=== PATIENT | female | born 1965 | race Caucasian/White ===

== ENCOUNTER → 2016-06-27 | Outpatient (CLI) | payer BC ==
[~2016-06-27] MED LIST: ATOR10TA66 PO; ATOR20TA49 PO; CEPH500C PO; CETI10CA8 PO; CITA10TA70 PO; CITA20TA12 PO; CYCL10TA9 PO; FEXO1TAB43 PO; FRSM40T PO; FURO40TA4 PO; GLUC1CAP37 PO; LSNP10T PO; METR500T; PANT40TA PO; PHEN37.555 PO; POTA10CA43 PO; POTA10TA36 PO; SPIR25TA3 PO; TOLT4CAP PO; TRAM-21 PO; [UNRECOGNIZED DRUG - CODE] IJ
--- OUTSIDE RECORDS SUMMARY | 2016-06-27 10:22 | XMS REPORT | Continuity of Care Document ---
Author Author [facility] Address Unknown Phone Unavailable Allergies Active Description Code Type Severity Reaction Onset Reported/Identified Relationship to Patient Clinical Status Yes tetracycline [id number] Drug Allergy Unknown HIVES 03/30/2013 Medications Problems Date Dx Coded Attending Type Code Diagnosis Diagnosed By 03/30/2013 CHUCHO GARCIA MD Ot 272.4 03/30/2013 CHUCHO GARCIA MD Ot 278.00 03/30/2013 CHUCHO GARCIA MD Ot 401.9 03/30/2013 CHUCHO GARCIA MD Ot 414.01 03/30/2013 CHUCHO GARCIA MD Ot 782.3 03/30/2013 CHUCHO GARCIA MD Ot 786.50 03/30/2013 CHUCHO GARCIA MD Ot 794.30 03/30/2013 CHUCHO GARCIA MD Ot V58.69 03/30/2013 CHUCHO GARCIA MD Ot V85.41 05/23/2013 MOHAMUD SUH, BRANDIE Bernal Ot 455.0 03/30/2014 YO MYERS DO V04.81 FLU SHOT 04/30/2014 Ot 715.36 04/30/2014 Ot 719.41 06/08/2014 MOHAMUD SUH, BRANDIE Bernal Ot 569.3 06/08/2014 MOHAMUD SUH, BRANDIE Bernal Ot 569.42 06/08/2014 BRANDIE MALLORY MD Ot V72.84 06/08/2014 MHOAMUD SUH, BRANDIE Bernal Ot V74.8 06/12/2014 MOHAMUD SUH, BRANDIE Bernal Ot 455.3 06/12/2014 MOHAMUD SUH, BRANDIE Bernal Ot 455.9 06/12/2014 BRANDIE MALLORY MD Ot 565.0 06/21/2014 MOHAMUD SUH, BRANDIE Bernal Ot 569.3 06/21/2014 BRANDIE MALLORY MD Ot 569.42 06/21/2014 BRANDIE MALLORY MD Ot V72.84 06/21/2014 MOHAMUD SUH, BRANDIE Bernal Ot V74.8 08/07/2014 Ot 272.4 08/11/2014 Ot 272.4 10/13/2014 Ot 715.36 10/13/2014 Ot 719.41 10/13/2014 RADHA SUH, CHUCHO Sprague Ot 780.4 10/13/2014 RADHA SUH, CHUCHO Sprague Ot 786.50 10/13/2014 RADHA SUH, CHUCHO J Ot 272.4 10/13/2014 RADHA SUH, CHUCHO Sprague Ot 397.0 10/13/2014 RADHA SUH, CHUCHO Sprague Ot 424.0 10/13/2014 RADHA SUH, CHUCHO Sprague Ot 530.81 10/13/2014 RADHA SUH, CHUCHO Sprague Ot 780.4 10/13/2014 RADHA SUH, CHUCHO Sprague Ot 782.3 10/13/2014 RADHA SUH, CHUCHO Sprague Ot 786.59 10/13/2014 MOHAMUD SUH, BRANDIE Bernal Ot V72.84 10/13/2014 Ot 272.4 10/13/2014 Ot 278.01 10/13/2014 Ot 311 10/13/2014 Ot 386.19 10/13/2014 Ot 530.81 10/13/2014 Ot 782.3 10/13/2014 Ot 786.09 10/13/2014 REYES CANNON Ot 272.4 10/13/2014 REYES CANNON Ot 278.01 10/13/2014 REYES CANNON Ot 715.90 10/13/2014 REYES CANNON Ot 782.3 10/13/2014 MOHAMUD SUH, BRANDIE Bernal Ot 569.3 10/13/2014 MOHAMUD SUH, BRANDIE Bernal Ot 569.42 10/13/2014 MOHAMUD SUH, BRANDIE Bernal Ot V72.84 10/13/2014 MOHAMUD SUH, BRANDIE Bernal Ot V74.8 10/13/2014 Ot 272.4 10/17/2014 RADHA SUH, CHUCHO Sprague Ot 780.4 10/17/2014 RADHA SUH, CHUCHO Sprague Ot 786.50 10/17/2014 RADHA SUH, CHUCHO J Ot 272.4 10/17/2014 RADHA SUH, BASHAR J Ot 397.0 10/17/2014 RADHA SUH, CHUCHO Sprague Ot 424.0 10/17/2014 RADHA SUH, CHUCHO Sprague Ot 530.81 10/17/2014 RADHA SUH, CHUCHO J Ot 780.4 10/17/2014 RADHA SUH, CHUCHO J Ot 782.3 10/17/2014 RADHA SUH, CHUCHO Sprague Ot 786.59 10/17/2014 MOHAMUD SUH, BRANDIE Bernal Ot V72.84 10/17/2014 Ot 272.4 10/17/2014 Ot 278.01 10/17/2014 Ot 311 10/17/2014 Ot 386.19 10/17/2014 Ot 530.81 10/17/2014 Ot 782.3 10/17/2014 Ot 786.09 10/17/2014 REYES CANNON Ot 272.4 10/17/2014 REYES CANNON Ot 278.01 10/17/2014 REYES CANNON Ot 715.90 10/17/2014 REYES CANNON Ot 782.3 10/17/2014 MOHAMUD SUH, BRANDIE Bernal Ot 569.3 10/17/2014 MOHAMUD SUH, BRANDIE Bernal Ot 569.42 10/17/2014 MOHAMUD SUH, BRANDIE Bernal Ot V72.84 10/17/2014 MOHAMUD SUH, BRANDIE Bernal Ot V74.8 10/17/2014 Ot 272.4 10/17/2014 RADHA SUH, CHUCHO Sprague Ot 780.4 10/17/2014 RADHA SUH, CHUCHO Sprague Ot 786.50 10/17/2014 RADHA SUH, CHUCHO Sprague Ot 272.4 10/17/2014 RADHA SUH, CHUCHO Sprague Ot 397.0 10/17/2014 RADHA SUH, CHUCHO J Ot 424.0 10/17/2014 RADHA SUH, CHUCHO Sprague Ot 530.81 10/17/2014 RADHA SUH, CHUCHO J Ot 780.4 10/17/2014 RADHA SUH, CHUCHO J Ot 782.3 10/17/2014 RADHA SUH, CHUCHO Sprague Ot 786.59 10/17/2014 MOHAMUD SUH, BRANDIE Bernal Ot V72.84 10/17/2014 Ot 272.4 10/17/2014 Ot 278.01 10/17/2014 Ot 311 10/17/2014 Ot 386.19 10/17/2014 Ot 530.81 10/17/2014 Ot 782.3 10/17/2014 Ot 786.09 10/17/2014 REYES CANNON Ot 272.4 10/17/2014 REYES CANNON Ot 278.01 10/17/2014 REYES CANNON Ot 715.90 10/17/2014 REYES CANNON Ot 782.3 10/17/2014 MOHAMUD SUH, BRANDIE Bernal Ot 569.3 10/17/2014 MOHAMUD SUH, BRANDIE Bernal Ot 569.42 10/17/2014 MOHAMUD SUH, BRANDIE Bernal Ot V72.84 10/17/2014 MOHAMUD SUH, BRANDIE Bernal Ot V74.8 10/17/2014 Ot 272.4 01/09/2015 RADHA SUH, CHUCHO Sprague Ot 780.4 01/09/2015 RADHA SUH, CHUCHO Sprague Ot 786.50 01/09/2015 RADHA SUH, CHUCHO J Ot 272.4 01/09/2015 RADHA SUH, CHUCHO J Ot 397.0 01/09/2015 RADHA SUH, CHUCHO J Ot 424.0 01/09/2015 RADHA SUH, BASEULALIO J Ot 530.81 01/09/2015 RADHA SUH, CHUCHO J Ot 780.4 01/09/2015 RADHA SUH, CHUCHO J Ot 782.3 01/09/2015 RADHA SUH, CHUCHO Sprague Ot 786.59 01/09/2015 MOHAMUD SUH, BRANDIE Bernal Ot V72.84 01/09/2015 Ot 272.4 01/09/2015 Ot 278.01 01/09/2015 Ot 311 01/09/2015 Ot 386.19 01/09/2015 Ot 530.81 01/09/2015 Ot 782.3 01/09/2015 Ot 786.09 01/09/2015 REYES CANNON Ot 272.4 01/09/2015 REYES CANNON Ot 278.01 01/09/2015 REYES CANNON Ot 715.90 01/09/2015 REYES CANNON Ot 782.3 01/09/2015 MOHAMUD SUH, BRANDIE Bernal Ot 569.3 01/09/2015 MOHAMUD SUH, BRANDIE M Ot 569.42 01/09/2015 MOHAMUD SUH, BRANDIE M Ot V72.84 01/09/2015 MOHAMUD SUH, BRANDIE M Ot V74.8 01/09/2015 Ot 272.4 01/12/2015 RADHA SUH, CHUCHO Sprague Ot 780.4 01/12/2015 RADHA SUH, CHUCHO Sprague Ot 786.50 01/12/2015 RADHA SUH, CHUCHO J Ot 272.4 01/12/2015 RADHA SUH, CHUCHO J Ot 397.0 01/12/2015 RADHA SUH, CHUCHO J Ot 424.0 01/12/2015 RADHA SUH, CHUCHO J Ot 530.81 01/12/2015 RADHA SUH, CHUCHO J Ot 780.4 01/12/2015 RADHA SUH, CHUCHO Sprague Ot 782.3 01/12/2015 RADHA SUH, CHUCHO Sprague Ot 786.59 01/12/2015 MOHAMUD SUH, BRANDIE Bernal Ot V72.84 01/12/2015 Ot 272.4 01/12/2015 Ot 278.01 01/12/2015 Ot 311 01/12/2015 Ot 386.19 01/12/2015 Ot 530.81 01/12/2015 Ot 782.3 01/12/2015 Ot 786.09 01/12/2015 REYES CANNON Ot 272.4 01/12/2015 REYES CANNON Ot 278.01 01/12/2015 REYES CANNON Ot 715.90 01/12/2015 REYES CANNON Ot 782.3 01/12/2015 MOHAMUD SUH, BRANDIE Bernal Ot 569.3 01/12/2015 MOHAMUD SUH, BRANDIE Bernal Ot 569.42 01/12/2015 MOHAMUD SUH, BRANDIE Bernal Ot V72.84 01/12/2015 MOHAMUD SUH, BRANDIE Bernal Ot V74.8 01/12/2015 Ot 272.4 01/25/2015 VIANCA SCHMITZ APRN Ot 719.46 02/07/2015 REYES CANNON Ot 272.4 02/07/2015 REYES CANNON Ot 278.01 02/07/2015 SOPHY PA, REYES K Ot 401.1 02/07/2015 SOPHY PA, REYES K Ot 715.90 02/07/2015 SOPHY PA, REYES K Ot 782.3 08/15/2015 RADHA SUH, CHUCHO Sprague Ot 780.4 08/15/2015 RADHA SUH, CHUCHO Sprague Ot 786.50 08/15/2015 RADHA SUH, CHUCHO J Ot 272.4 08/15/2015 RADHA SUH, CHUCHO J Ot 397.0 08/15/2015 RADHA SUH, CHUCHO J Ot 424.0 08/15/2015 RADHA SUH, CHUCHO Sprague Ot 530.81 08/15/2015 RADHA SUH, CHUCHO J Ot 780.4 08/15/2015 RADHA SUH, CHUCHO Sprague Ot 782.3 08/15/2015 RADHA SUH, CHUCHO Sprague Ot 786.59 08/15/2015 MOHAMUD SUH, BRANDIE Bernal Ot V72.84 08/15/2015 Ot 272.4 08/15/2015 Ot 278.01 08/15/2015 Ot 311 08/15/2015 Ot 386.19 08/15/2015 Ot 530.81 08/15/2015 Ot 782.3 08/15/2015 Ot 786.09 08/15/2015 SOPHY KAHN, REYES K Ot 272.4 08/15/2015 SOPHY KAHN, REYES K Ot 278.01 08/15/2015 SOPHY KAHN, REYES K Ot 715.90 08/15/2015 SOPHY PA, REYES K Ot 782.3 08/15/2015 MOHAMUD SUH, BRANDIE Bernal Ot 569.3 08/15/2015 MOHAMUD SUH, BRANDIE Bernal Ot 569.42 08/15/2015 MOHAMUD SUH, BRANDIE Bernal Ot V72.84 08/15/2015 MOHAMUD SUH, BRANDIE Bernal Ot V74.8 08/15/2015 Ot 272.4 08/15/2015 VIANCA SCHMITZ APRN Ot 719.46 08/15/2015 SOPHY KAHN, REYES K Ot 272.4 08/15/2015 SOPHY PA, REYES Connelly Ot 278.01 08/15/2015 REYES CANNON Ot 401.1 08/15/2015 REYES CANNON Ot 715.90 08/15/2015 REYES CANNON Ot 782.3 08/16/2015 PATRICK SUH, NGUYEN Medel Ot L50.9 08/29/2015 PATRICK SUH, NGUYEN Medel Ot L50.9 URTICARIA, UNSPECIFIED 10/12/2015 PATRICK SUH, NGUYEN Medel Ot L50.9 URTICARIA, UNSPECIFIED 11/16/2015 VIANCA SCHMITZ SENIOR BUYER Ot K21.9 GASTRO-ESOPHAGEAL REFLUX DISEASE WITHOUT 12/07/2015 VIANCA SCHMITZ SENIOR BUYER Ot K21.9 GASTRO-ESOPHAGEAL REFLUX DISEASE WITHOUT 12/18/2015 VIANCA SCHMITZ APRN Ot R10.13 EPIGASTRIC PAIN 12/23/2015 VIANCA SCHMITZ APRN Ot R10.13 EPIGASTRIC PAIN 01/04/2016 VIANCA SCHMITZ SENIOR BUYER Ot R10.13 EPIGASTRIC PAIN 01/07/2016 VIANCA SCHMITZ APRN Ot M54.5 LOW BACK PAIN Procedures Results Encounters ACCT No. Visit Date/Time Discharge Status Pt. Type Provider Facility Loc./Unit Complaint [id number] 03/30/2014 15:42:00 03/30/2014 23: 59:59 [facility] Outpatient YO MYERS DO
--- NOTE | 2016-06-27 11:41 | Diagnostic Imaging Report ---
Multiple views of the right shoulder. INDICATION: Increased right shoulder pain. FINDINGS: No fracture, dislocation, or radiopaque foreign body seen. The acromioclavicular joint demonstrates mild superior osteophytes with no significant inferior osteophytes. There is sparing along the humeral head lateral superior aspect at the tendon insertion of the rotator cuff. IMPRESSION: Mild degenerative changes. Dictated by: Dictated on workstation # [id number]
--- NOTE | 2016-06-27 12:24 | Diagnostic Imaging Report ---
Bilateral screening mammogram. The current study was also evaluated with a Computer Aided Detection (CAD) system. INDICATION: Screening. No current complaints stated on the questionnaire. COMPARISON: 05/12/2007. FINDINGS: The breasts are composed of heterogeneously dense parenchyma which may decrease mammographic sensitivity. The overall breast parenchymal pattern is similar to 2007 accounting for position and technique differences with no definite change. No suspicious calcifications noted. IMPRESSION: Heterogeneously dense parenchyma with no definite suspicious lesion. Annual screening mammogram is recommended. ACR BI-RADS Category 2: Benign findings. Result letter will be mailed to the patient. Note: At least 10% of breast cancer is not imaged by mammography. Dictated by: Dictated on workstation # [id number]
== END ==
LOC: RAD 10:15
PROVIDERS: ATTEND Nurse Practitioner Family
DX: Z12.31 Encounter for screening mammogram for malignant neoplasm of breast (principal); M19.211 Secondary osteoarthritis, right shoulder
CPT/HCPCS: 73030; 77067

== ENCOUNTER 2016-07-25 16:40 | Observation (INO) | payer BC ==
[~2016-07-25] VITALS: Ht 162.6 cm; Wt 130.7 kg
[~2016-07-25 16:40] MED LIST changes: -ATOR20TA49 PO; -CITA20TA12 PO; -CYCL10TA9 PO; -FEXO1TAB43 PO; -FURO40TA4 PO; -GLUC1CAP37 PO; -POTA10TA36 PO; -SPIR25TA3 PO; -[UNRECOGNIZED DRUG - CODE] IJ
--- OUTSIDE RECORDS SUMMARY | 2016-07-25 16:51 | XMS REPORT | Continuity of Care Document ---
Author Author [facility] Address Unknown Phone Unavailable Allergies Active Description Code Type Severity Reaction Onset Reported/Identified Relationship to Patient Clinical Status Yes tetracycline [id number] Drug Allergy Unknown HIVES 03/30/2013 Medications Problems Date Dx Coded Attending Type Code Diagnosis Diagnosed By 03/30/2013 CHUCHO GARCIA MD Ot 272.4 HYPERLIPIDEMIA NEC/NOS 03/30/2013 CHUCHO GARCIA MD Ot 278.00 OBESITY, NOS 03/30/2013 CHUCHO GARCIA MD Ot 401.9 HYPERTENSION NOS 03/30/2013 CHUCHO GARCIA MD Ot 414.01 CORONARY ATHEROSCLEROSIS OF [place] CORON 03/30/2013 CHUCHO GARCIA MD Ot 782.3 EDEMA 03/30/2013 CHUCHO GARCIA MD Ot 786.50 CHEST PAIN NOS 03/30/2013 CHUCHO GARCIA MD Ot 794.30 ABN CARDIOVASC STUDY NOS 03/30/2013 CHUCHO GARCIA MD Ot V58.69 OTH MED,LT,CURRENT USE 03/30/2013 CHUCHO GARCIA MD Ot V85.41 BODY MASS INDEX 40.0-44.9, ADULT 05/23/2013 MOHAMUD SUH, BRANDIE Bernal Ot 455.0 INT HEMORRHOID W/O COMPL 03/30/2014 YO MYERS DO V04.81 FLU SHOT 04/30/2014 Ot 715.36 04/30/2014 Ot 719.41 06/08/2014 BRANDIE MALLORY MD Ot 569.3 06/08/2014 BRANDIE MALLORY MD Ot 569.42 06/08/2014 BRANDIE MALLORY MD Ot V72.84 06/08/2014 BRANDIE MALLORY MD Ot V74.8 06/12/2014 BRANDIE MALLORY MD Ot 455.3 EXT HEMORRHOID W/O COMPL 06/12/2014 BRANDIE MALLORY MD Ot 455.9 RESIDUAL HEMORRHOID TAGS 06/12/2014 MOHAMUD SUH, BRANDIE Bernal Ot 565.0 ANAL FISSURE 06/21/2014 MOHAMUD SUH, BRANDIE Bernal Ot 569.3 06/21/2014 MOHAMUD SUH, BRANDIE Bernal Ot 569.42 06/21/2014 MOHAMUD SUH, BRANDIE Bernal Ot V72.84 06/21/2014 MOHAMUD SUH, BRANDIE Bernal [...] Sprague Ot 530.81 10/13/2014 RADHA SUH, CHUCHO J Ot 780.4 10/13/2014 RADHA SUH, CHUCHO Sprague [...] CHUCHO J Ot 272.4 10/17/2014 RADHA SUH, CHUCHO Sprague Ot 397.0 10/17/2014 RADHA SUH, CHUCHO Sprague Ot 424.0 10/17/2014 RADHA SUH, CHUCHO Sprague Ot 530.81 10/17/2014 RADHA SUH, CHUCHO Sprague Ot 780.4 10/17/2014 RADHA SUH, CHUCHO Sprague Ot 782.3 10/17/2014 RADHA SUH, CHUCHO Sprague Ot 786.59 10/17/2014 MOHAMUD SUH, BRANDIE Bernal Ot V72.84 10/17/2014 Ot 272.4 10/17/2014 Ot 278.01 10/17/2014 Ot 311 10/17/2014 Ot 386.19 10/17/2014 Ot 530.81 10/17/2014 Ot 782.3 10/17/2014 Ot 786.09 10/17/2014 REYES CANNON Ot 272.4 10/17/2014 SOPHY KAHN, REYES K Ot 278.01 10/17/2014 REYES CANNON K Ot 715.90 10/17/2014 REYES CANNON K Ot 782.3 10/17/2014 MOHAMUD SUH, BRANDIE Bernal Ot 569.3 10/17/2014 MOHAMUD SUH, BRANDIE Bernal Ot 569.42 10/17/2014 MOHAMUD SUH, BRANDIE Bernal Ot V72.84 10/17/2014 MOHAMUD SUH, BRANDIE Bernal Ot V74.8 10/17/2014 Ot 272.4 10/17/2014 RADHA SUH, CHUCHO Sprague Ot 780.4 10/17/2014 RADHA SUH, CHUCHO Sprague Ot 786.50 10/17/2014 RADHA SUH, CHUCHO J Ot 272.4 10/17/2014 RADHA SUH, CHUCHO Sprague Ot 397.0 10/17/2014 RADHA SUH, CHUCHO Sprague Ot 424.0 10/17/2014 RADHA SUH, CHUCHO Sprague Ot 530.81 10/17/2014 RADHA SUH, CHUCHO Sprague Ot 780.4 10/17/2014 RADHA SUH, CHUCHO Sprague Ot 782.3 10/17/2014 RADHA SUH, CHUCHO Sprague [...] J Ot 272.4 01/09/2015 RADHA SUH, CHUCHO Sprague Ot 397.0 01/09/2015 RADHA SUH, CHUCHO Sprague Ot 424.0 01/09/2015 RADHA SUH, CHUCHO Sprague Ot 530.81 01/09/2015 RADHA SUH, CHUCHO J Ot 780.4 01/09/2015 RADHA SUH, CHUCHO Sprague Ot 782.3 01/09/2015 RADHA SUH, CHUCHO Sprague Ot 786.59 01/09/2015 MOHAMUD SUH, BRANDIE Bernal Ot V72.84 01/09/2015 Ot 272.4 01/09/2015 Ot 278.01 01/09/2015 Ot 311 01/09/2015 Ot 386.19 01/09/2015 Ot 530.81 01/09/2015 Ot 782.3 01/09/2015 Ot 786.09 01/09/2015 REYES CANNON Ot 272.4 01/09/2015 SOPHY PA, REYES Connelly Ot 278.01 01/09/2015 SOPHY PA, REYES Connelly Ot 715.90 01/09/2015 SOPHY PA, REYES Connelly Ot 782.3 01/09/2015 MOHAMUD SUH, BRANDIE Bernal Ot 569.3 01/09/2015 MOHAMUD SUH, BRANDIE Bernal Ot 569.42 01/09/2015 MOHAMUD SUH, BRANDIE M Ot V72.84 01/09/2015 MOHAMUD SUH, BRANDIE M Ot V74.8 01/09/2015 Ot 272.4 01/12/2015 RADHA SUH, CHUCHO J Ot 780.4 01/12/2015 RADHA SUH, BASEULALIO J Ot 786.50 01/12/2015 RADHA SUH, BASEULALIO J Ot 272.4 01/12/2015 RADHA SUH, CHUCHO J Ot 397.0 01/12/2015 RADHA SUH, CHUCHO J Ot 424.0 01/12/2015 RADHA SUH, BASHAR J Ot 530.81 01/12/2015 RADHA SUH, BASHAR J Ot 780.4 01/12/2015 RADHA SUH, BASHAR J Ot 782.3 01/12/2015 RADHA SUH, BASEULALIO J Ot 786.59 01/12/2015 MOHAMUD SUH, BRANDIE Bernal Ot V72.84 01/12/2015 Ot 272.4 01/12/2015 Ot 278.01 01/12/2015 Ot 311 01/12/2015 Ot 386.19 01/12/2015 Ot 530.81 01/12/2015 Ot 782.3 01/12/2015 Ot 786.09 01/12/2015 SOPHY KAHN, REYES Connelly Ot 272.4 01/12/2015 SOPHY PA, REYES Connelly Ot 278.01 01/12/2015 SOPHY PA, REYES Connelly Ot 715.90 01/12/2015 SOPHY KAHN, REYES Connelly Ot 782.3 01/12/2015 MOHAMUD SUH, BRANDIE Bernal Ot 569.3 01/12/2015 MOHAMUD SUH, BRANDIE M Ot 569.42 01/12/2015 MOHAMUD SUH, BRANDIE Bernal Ot V72.84 01/12/2015 MOHAMUD SUH, BRANDIE Bernal Ot V74.8 01/12/2015 Ot 272.4 01/25/2015 VIANCA SCHMITZ APRN Ot 719.46 02/07/2015 SMALLS-PHU PA, REYES K Ot 272.4 02/07/2015 SMALLS-PHU PA, REYES K Ot 278.01 02/07/2015 SMALLS-PHU PA, REYES K Ot 401.1 02/07/2015 SMALLS-PHU PA, REYES K Ot 715.90 02/07/2015 SMALLS-PHU PA, REYES K Ot 782.3 08/15/2015 RADHA SUH, BASEULALIO J Ot 780.4 08/15/2015 RADHA SUH, CHUCHO J Ot 786.50 08/15/2015 RADHA SUH, CHUCHO J Ot 272.4 08/15/2015 RADHA SUH, CHUCHO J Ot 397.0 08/15/2015 RADHA SUH, BASHAR J Ot 424.0 08/15/2015 RADHA SUH, BASHAR J Ot 530.81 08/15/2015 RADHA SUH, BASHAR J Ot 780.4 08/15/2015 RADHA SUH, BASHAR J Ot 782.3 08/15/2015 RADHA SUH, BASEULALIO J Ot 786.59 08/15/2015 MOHAMUD SUH, BRANDIE Bernal Ot V72.84 08/15/2015 Ot 272.4 08/15/2015 Ot 278.01 08/15/2015 Ot 311 08/15/2015 Ot 386.19 08/15/2015 Ot 530.81 08/15/2015 Ot 782.3 08/15/2015 Ot 786.09 08/15/2015 SERINA-PHU PA, REYES K Ot 272.4 08/15/2015 SERIAN-PHU PA, REYES K Ot 278.01 08/15/2015 SERINA-PHU PA, REYES K Ot 715.90 08/15/2015 SERINA-PHU PA, REYES K Ot 782.3 08/15/2015 MOHAMUD SUH, BRANDIE Bernal Ot 569.3 08/15/2015 MOHAMUD SUH, BRANDIE Bernal Ot 569.42 08/15/2015 MOHAMUD SUH, BRANDIE Bernal Ot V72.84 08/15/2015 MOHAMUD SUH, BRANDIE Bernal Ot V74.8 08/15/2015 Ot 272.4 08/15/2015 AINSLEY ULISESNABIL Rodriguez CNA PER DIEM Ot 719.46 08/15/2015 SOPHY KAHN REYES Godwin Ot 272.4 08/15/2015 SOPHY KAHN, REYES Godwin Ot 278.01 08/15/2015 SOPHY KAHN, REYES Godwin Ot 401.1 08/15/2015 SOPHY KAHN, REYES Godwin Ot 715.90 08/15/2015 SOPHY KAHN, REYES Godwin Ot 782.3 08/16/2015 PATRICK SUH, NGUYEN Medel Ot L50.9 08/29/2015 PATRICK SUH, NGUYEN Medel Ot L50.9 URTICARIA, UNSPECIFIED 10/12/2015 PATRICK SUH, NGUYEN Medel Ot L50.9 URTICARIA, UNSPECIFIED 11/16/2015 VIANCA SCHMITZ CNA PER DIEM Ot K21.9 GASTRO-ESOPHAGEAL REFLUX DISEASE WITHOUT 12/07/2015 VIANCA SCHMITZ CNA PER DIEM Ot K21.9 GASTRO-ESOPHAGEAL REFLUX DISEASE WITHOUT 12/18/2015 VIANCA SCHMITZ CNA PER DIEM Ot R10.13 EPIGASTRIC PAIN 12/23/2015 VIANCA SCHMITZ CNA PER DIEM Ot R10.13 EPIGASTRIC PAIN 01/04/2016 VIANCA SCHMITZ CNA PER DIEM Ot R10.13 EPIGASTRIC PAIN 01/07/2016 VIANCA SCHMITZ CNA PER DIEM Ot M54.5 LOW BACK PAIN 06/27/2016 CHUCHO GARCIA MD Ot 780.4 DIZZINESS AND GIDDINESS 06/27/2016 CHUCHO GARCIA MD Ot 786.50 CHEST PAIN NOS 06/27/2016 CHUCHO GARCIA MD Ot 272.4 HYPERLIPIDEMIA NEC/NOS 06/27/2016 CHUCHO GARCIA MD Ot 397.0 TRICUSPID VALVE DISEASE 06/27/2016 CHUCHO GARCIA MD Ot 424.0 MITRAL VALVE DISORDER 06/27/2016 CHUCHO GARCIA MD Ot 530.81 ESOPHAGEAL REFLUX 06/27/2016 CHUCHO GARCIA MD Ot 780.4 DIZZINESS AND GIDDINESS 06/27/2016 CHUCHO GARCIA MD Ot 782.3 EDEMA 06/27/2016 CHUCHO GARCIA MD Ot 786.59 CHEST PAIN NEC 06/27/2016 MOHAMUD SUH, BRANDIE Bernal Ot V72.84 EXAM PRE-OPERATIVE NOS 06/27/2016 Ot 272.4 HYPERLIPIDEMIA NEC/NOS 06/27/2016 Ot 278.01 MORBID OBESITY 06/27/2016 Ot 311 DEPRESSIVE DISORDER NEC 06/27/2016 Ot 386.19 PERIPHERAL VERTIGO NEC 06/27/2016 Ot 530.81 ESOPHAGEAL REFLUX 06/27/2016 Ot 782.3 EDEMA 06/27/2016 Ot 786.09 RESPIRATORY ABNORM NEC 06/27/2016 REYES CANNON Ot 272.4 HYPERLIPIDEMIA NEC/NOS 06/27/2016 REYES CANNON Ot 278.01 MORBID OBESITY 06/27/2016 REYES CANNON Ot 715.90 OSTEOARTHROS NOS-UNSPEC 06/27/2016 REYES CANNON Ot 782.3 EDEMA 06/27/2016 MOHAMUD SUH, BRANDIE Bernal Ot 569.3 RECTAL ANAL HEMORRHAGE 06/27/2016 MOHAMUD SUH, BRANDIE Bernal Ot 569.42 ANAL OR RECTAL PAIN 06/27/2016 MOHAMUD SUH, BRANDIE M Ot V72.84 EXAM PRE-OPERATIVE NOS 06/27/2016 MOHAMUD SUH, BRANDIE M Ot V74.8 SCREEN-BACTERIAL DIS NEC 06/27/2016 Ot 272.4 HYPERLIPIDEMIA NEC/NOS 06/27/2016 VIANCA SCHMITZ CNA PER DIEM Ot 719.46 JOINT PAIN-L/LEG 06/27/2016 REYES CANNON Ot 272.4 HYPERLIPIDEMIA NEC/NOS 06/27/2016 REYES CANNON Ot 278.01 MORBID OBESITY 06/27/2016 REYES CANNON Ot 401.1 BENIGN HYPERTENSION 06/27/2016 REYES CANNON Ot 715.90 OSTEOARTHROS NOS-UNSPEC 06/27/2016 REYES CANNON Ot 782.3 EDEMA 06/27/2016 PATRICK SUH, NGUYEN Medel Ot L50.9 URTICARIA, UNSPECIFIED 06/27/2016 VIANCA SCHMITZ CNA PER DIEM Ot K21.9 GASTRO-ESOPHAGEAL REFLUX DISEASE WITHOUT 06/27/2016 VIANCA SCHMITZ CNA PER DIEM Ot R10.13 EPIGASTRIC PAIN 06/27/2016 VIANCA SCHMITZ CNA PER DIEM Ot M54.5 LOW BACK PAIN 07/01/2016 VIANCA SCHMITZ APRN Ot M19.211 SECONDARY OSTEOARTHRITIS, RIGHT SHOULDER 07/01/2016 VIANCA SCHMITZ APRN Ot Z12.31 ENCNTR SCREEN MAMMOGRAM FOR MALIGNANT NE 07/10/2016 VIANCA SCHMITZ APRN Ot M19.211 SECONDARY OSTEOARTHRITIS, RIGHT SHOULDER 07/10/2016 VIANCA SCHMITZ APRN Ot Z12.31 ENCNTR SCREEN MAMMOGRAM FOR MALIGNANT NE Procedures Results Encounters ACCT No. Visit Date/Time Discharge Status Pt. Type Provider Facility Loc./Unit Complaint [id number] 03/30/2014 15:42:00 03/30/2014 23: 59:59 [facility] Outpatient YO MYERS DO
--- NOTE | 2016-07-25 16:52 | ED Dyspnea ---
General Stated Complaint: SOA Source of Information: Patient, EMS Exam Limitations: No Limitations History of Present Illness Time Seen by Provider: 16:49 Initial Comments To ER from [facility] after having arthroscopy of the right shoulder, ulnar nerve decompression, carpal tunnel syndrome of the right arm. Upon awakening from anesthesia they found her to be hypoxic with oxygen saturation dropping to the 80 percent range without oxygen. Preoperatively she was 92-94 percent on room air. She voices no known history of previous existing lung disease and she is a nonsmoker. Upon arrival to the emergency room she is at about 87 percent but this increases to 95 percent with deep breathing and a cough. She denies any history of a cough and her cough is nonproductive. She denies any unilateral leg swelling preceding this surgery today, any history of DVT, any exogenous estrogen use and she states that she does not feel short of breath. Severity: Mild Allergies and Home Medications Allergies Coded Allergies: tetracycline (Verified Allergy, Unknown, HIVES, 07/25/16) Home Medications Atorvastatin Calcium 10 Mg Tablet 10 MG PO DAILY (Reported) Cetirizine HCl 10 Mg Capsule 10 MG PO DAILY (Reported) Citalopram Hydrobromide 10 Mg Tablet 1 EACH PO DAILY (Reported) Lisinopril 10 Mg Tab 10 MG PO DAILY (Reported) Metronidazole 500 Mg Tab 5Days 1 EACH .ROUTE TID Prescribed by: GEO BARRETO on 06/12/141726 Pantoprazole Sodium 40 Mg Tablet.dr 40 MG PO HS (Reported) Phentermine Hcl 37.5 Mg Capsule 37.5 MG PO DAILY (Reported) Tramadol Hcl 50 Mg Tablet #30 100 MG PO Q12H Prescribed by: GEO BARRETO on 06/12/141726 Constitutional: see HPI EENTM: see HPI Respiratory: see HPI coughNo dyspnea on exertion, No hemoptysis, No orthopnea , No phlegm, No short of breath, No stridor, No wheezing Cardiovascular: no symptoms reportedNo chest pain, No edema, No Hx of Intervention, No palpitations, No syncope Genitourinary: no symptoms reported Musculoskeletal: no symptoms reported Skin: no symptoms reported Psychiatric/Neurological: No Symptoms Reported Past Bmvifyk-Iqygsl-Zpxjdb Hx Immunizations Up To Date Date of Pneumonia Vaccine: Mar 23, 2013 Date of Influenza Vaccine: Feb 15, 2014 Surgeries HX Surgeries: Yes Respiratory Hx Respiratory Disorders: No Cardiovascular Hx Cardiac Disorders: Yes Neurological Hx Neurological Disorders: No Genitourinary Hx Genitourinary Disorders: No Gastrointestinal Hx Gastrointestinal Disorders: No Musculoskeletal Hx Musculoskeletal Disorders: No Endocrine Hx Endocrine Disorders: No HEENT HX ENT Disorders: Yes (DENTURES) Cancer Hx Cancer: No Physical Exam Vital Signs Vital Sign - Last 12Hours 07/25/16 16:40 Temp 98.1 Pulse 90 Resp 18 B/P 119/66 Pulse Ox 84 O2 Delivery Room Air O2 Flow Rate 3 Capillary Refill : General Appearance: No Apparent Distress WD/WN Other (alert talkative and pleasant and is not excessively sedated. Her lungs are clear. Oxygen saturations about 86-87 percent on room air but increases to 95 percent with a deep breath coughing and talking.) HEENT: PERRL/EOMI TMs Normal Neck: Full Range of Motion Normal Inspection Respiratory: Chest Non Tender Lungs Clear Normal Breath Sounds No Accessory Muscle Use No Respiratory Distress Cardiovascular: Normal Peripheral Pulses Other (she is a little tachycardic at about 95-105 sinus) Gastrointestinal: Normal Bowel Sounds Non Tender Soft Neurologic/Psychiatric: Alert Oriented x3 No Motor/Sensory Deficits Skin: Normal Color Warm/Dry Focused Exam Lactic Acid Level Laboratory Tests Test 07/25/16 17:14 Alanine Aminotransferase (ALT/SGPT) 19U/L (0-55) Albumin 3.8G/DL (3.2-4.5) Alkaline Phosphatase 85U/L (40-136) Anion Gap 11MMOL/L (5-14) Aspartate Amino Transf (AST/SGOT) 12U/L (5-34) B-Type Natriuretic Peptide 31.7PG/ML (<100.0) BUN/Creatinine Ratio 11 Blood Urea Nitrogen 9MG/DL (7-18) Calcium Level 8.2MG/DL (8.5-10.1) L Carbon Dioxide Level 24MMOL/L (21-32) Chloride Level 105MMOL/L (98-107) Creatinine 0.79MG/DL (0.60-1.30) Estimat Glomerular Filtration Rate > 60 Glucose Level 126MG/DL (70-105) H Potassium Level 3.9MMOL/L (3.6-5.0) Sodium Level 140MMOL/L (135-145) Total Bilirubin 0.3MG/DL (0.1-1.0) Total Protein 6.4G/DL (6.4-8.2) Progress/Results/Core Measures Results/Orders Lab Results Laboratory Tests Test 07/25/16 17:14 Range/Units Alanine Aminotransferase (ALT/SGPT) 19 0-55 U/L Albumin 3.8 3.2-4.5 G/DL Alkaline Phosphatase 85 40-136 U/L Anion Gap 11 5-14 MMOL/L Aspartate Amino Transf (AST/SGOT) 12 5-34 U/L B-Type Natriuretic Peptide 31.7 <100.0 PG/ML BUN/Creatinine Ratio 11 Band Neutrophils 0 % Basophils # (Auto) 0.0 0.0-0.1 10^3/uL Basophils % (Manual) 0 % Basophils (%) (Auto) 0 0-10 % Blood Morphology Comment NORMAL Blood Urea Nitrogen 9 7-18 MG/DL Calcium Level 8.2 L 8.5-10.1 MG/DL Carbon Dioxide Level 24 21-32 MMOL/L Chloride Level 105 98-107 MMOL/L Creatinine 0.79 0.60-1.30 MG/DL Eosinophils # (Auto) 0.0 0.0-0.3 10^3/uL Eosinophils % (Manual) 0 % Eosinophils (%) (Auto) 0 0-10 % Estimat Glomerular Filtration Rate > 60 Glucose Level 126 H 70-105 MG/DL Hematocrit 37 35-52 % Hemoglobin 12.0 11.5-16.0 G/DL Lymphocytes # (Auto) 0.5 L 1.0-4.0 X 10^3 Lymphocytes % (Manual) 3 % Lymphocytes (%) (Auto) 4 L 12-44 % Mean Corpuscular Hemoglobin 29 25-34 PG Mean Corpuscular Hemoglobin Concent 33 32-36 G/DL Mean Corpuscular Volume 90 80-99 FL Mean Platelet Volume 10.6 H 7.4-10.4 FL Monocytes # (Auto) 0.2 0.0-1.0 X 10^3 Monocytes % (Manual) 1 % Monocytes (%) (Auto) 2 0-12 % Neutrophils # (Auto) 12.6 H 1.8-7.8 X 10^3 Neutrophils % (Manual) 96 % Neutrophils (%) (Auto) 94 H 42-75 % Platelet Count 242 130-400 10^3/uL Potassium Level 3.9 3.6-5.0 MMOL/L Red Blood Count 4.09 L 4.35-5.85 10^6/uL Red Cell Distribution Width 14.3 10.0-14.5 % Sodium Level 140 135-145 MMOL/L Total Bilirubin 0.3 0.1-1.0 MG/DL Total Protein 6.4 6.4-8.2 G/DL White Blood Count 13.4 H 4.3-11.0 10^3/uL My Orders Orders-DAVID BROTHERS APRN Chest 1 View, Ap/Pa Only (07/25/16 16:46) Ct Angio Chest W (07/25/16 16:46) Incentive Spirometry (Nursing) Q2H (07/25/16 16:46) Cbc With Automated Diff (07/25/16 16:46) Comprehensive Metabolic Panel (07/25/16 16:46) BNP (07/25/16 16:46) Peak Flow Rt-Rfs (07/25/16 16:46) Albuterol/Ipra Inhalation Soln (Duoneb I (07/25/16 17:15) Svn Sm Volume Nebulizer Rt-Rfs (07/25/16 17:05) Manual Differential (07/25/16 17:14) Iohexol Injection (Omnipaque 350 Mg/Ml 1 (07/25/16 18:30) Ns (Ivpb) (Sodium Chloride 0.9% Ivpb Bag (07/25/16 18:30) Medications Given in ED Current Medications Medications Dose Ordered Sig/Tresa Route Start Time Stop Time Status Last Admin Dose Admin Albuterol/ Ipratropium 3 ml ONCE ONCE INH 07/25/16 17:15 07/25/16 17:16 DC 07/25/16 17:09 3 ML Iohexol 150 ml ONCE ONCE IV 07/25/16 18:30 07/25/16 18:31 DC 07/25/16 18:25 125 ML Sodium Chloride 100 ml ONCE ONCE IV 07/25/16 18:30 07/25/16 18:31 DC 07/25/16 18:25 80 ML Vital Signs/I&O Vital Sign - Last 12Hours 07/25/16 07/25/16 07/25/16 16:40 16:55 17:09 Temp 98.1 Pulse 90 Resp 18 B/P 119/66 Pulse Ox 84 96 92 O2 Delivery Room Air O2 Flow Rate 3 2.00 2.00 Diagnostic Imaging Diagonstic Imaging: Xray Plain Films/CT/US/NM/MRI: chest Comments NAME: ROC[facility] REC#: [id number] PT STATUS: REG ER : 1965 PHYSICIAN: DAVID BROTHERS APRN ADMIT DATE: 07/25/16/ER Signed Date of Exam:07/25/16 CHEST 1 VIEW, AP/PA ONLY INDICATION: Decreased O2 saturations. COMPARISON STUDY: Chest from March 2013. FINDINGS: A portable upright view of the chest demonstrates the lungs to be clear. The heart, mediastinum, pulmonary vascularity and visualized bony thorax are normal. IMPRESSION: Negative chest. Dictated by: Dictated on workstation # [id number] Dict: 07/25/161707 Trans: 07/25/161714 MARAH [id number] Interpreted by: CLOVIS LALA MD Electronically signed by: CLOVIS LALA MD 07/25/168 Departure Communication Time/Spoke to Admitting Phy: 18:49 Communication Continuous pulse oximetry and scheduled for a sleep study as soon as possible, preferably tonight if this can be arranged. I relayed this request RT and they will see if they can facilitate this. Progress Notes 1705-RT has been here to do peak flow and is in spirometry. Both of these numbers were lower than predicted for the patient. DuoNeb ordered. Impression Impression: Primary Impression: Hypoxia Disposition: HOME, SELF-CARE Condition: Stable Decision to Admit Reason: Admit from ER (General) Decision to Admit/Date: Jul 25, 2016 Time/Decision to Admit Time: 18:51 Departure-Patient Inst. Decision time for Depature: 17:06 Referrals: URIEL CALDERÓN MD (PCP/Family) Primary Care Physician DAVID BROTHERS APRN Jul 25, 2016 16:52
[2016-07-25] MEDS ORDERED: RT-ALBUTEROL/IPRATROPIUM 3 ML (DUONEB) VIAL INH ONE (17:15)
[2016-07-25 17:18] LABS: BASOPHILS % (AUTO) 0 % (0-10); EOSINOPHILS % (AUTO) 0 % (0-10); LYMPHOCYTES # (AUTO) 0.5 X 10^3 (1.0-4.0); LYMPHOCYTES % (AUTO) 4 % (12-44); MEAN CORPUSCULAR HEMOGLOBIN 29 PG (25-34); MEAN CORPUSCULAR HGB CONC 33 G/DL (32-36); MEAN CORPUSCULAR VOLUME 90 FL (80-99); MEAN PLATELET VOLUME 10.6 FL (7.4-10.4); MONOCYTES # (AUTO) 0.2 X 10^3 (0.0-1.0); MONOCYTES % (AUTO) 2 % (0-12); NEUTROPHILS # (AUTO) 12.6 X 10^3 (1.8-7.8); NEUTROPHILS % (AUTO) 94 % (42-75); PLATELET COUNT 242 10^3/uL (130-400); RED BLOOD COUNT 4.09 10^6/uL (4.35-5.85); RED CELL DISTRIBUTION WIDTH 14.3 % (10.0-14.5); WHITE BLOOD COUNT 13.4 10^3/uL (4.3-11.0)
--- NOTE | 2016-07-25 17:18 | Diagnostic Imaging Report ---
INDICATION: Decreased O2 saturations. COMPARISON STUDY: Chest from March 2013. FINDINGS: A portable upright view of the chest demonstrates the lungs to be clear. The heart, mediastinum, pulmonary vascularity and visualized bony thorax are normal. IMPRESSION: Negative chest. Dictated by: Dictated on workstation # [id number]
[2016-07-25 17:41] LABS: ALANINE AMINOTRANSFERASE 19 U/L (0-55); ALBUMIN 3.8 G/DL (3.2-4.5); ANION GAP 11 MMOL/L (5-14); ASPARTATE AMINO TRANSFERASE 12 U/L (5-34); BILIRUBIN,TOTAL 0.3 MG/DL (0.1-1.0); BLOOD UREA NITROGEN 9 MG/DL (7-18); BUN/CREATININE RATIO 11; CALCIUM 8.2 MG/DL (8.5-10.1); CARBON DIOXIDE 24 MMOL/L (21-32); CHLORIDE 105 MMOL/L (98-107); CREATININE SERUM 0.79 MG/DL (0.60-1.30); GFR ESTIMATED > 60; GLUCOSE 126 MG/DL (70-105); POTASSIUM 3.9 MMOL/L (3.6-5.0); SODIUM 140 MMOL/L (135-145); TOTAL PROTEIN 6.4 G/DL (6.4-8.2)
[2016-07-25 17:44] LABS: BAND NEUTROPHILS 0 %; BASOPHILS % (MANUAL) 0 %; EOSINOPHILS % (MANUAL) 0 %; LYMPHOCYTES % (MANUAL) 3 %; NEUTROPHILS % (MANUAL) 96 %
[2016-07-25] MEDS ORDERED: IOHEXOL 350 MG/ML 150 ML (OMNIPAQUE 350) VIAL IV ONE (18:30)
[2016-07-25] MEDS ORDERED: NS 100 ML (IVPB) BAG IV ONE (18:30)
--- NOTE | 2016-07-25 18:32 | Diagnostic Imaging Report ---
PROCEDURE: CT angiography of the chest with contrast. TECHNIQUE: Multiple contiguous axial images were obtained through the chest after uneventful bolus administration of intravenous contrast. Reconstructed CTA MIP acquisitions were also performed. Indication: Hypoxia and dyspnea following surgery today. Comparison: None. Discussion: No pulmonary embolus identified. No focal consolidation or suspicious pulmonary nodule. The thoracic aorta is normal in caliber and configuration. The pulmonary arteries are normal in caliber. Normal heart size. No pleural or pericardial fluid. The gallbladder surgically absent. The visualized upper abdomen is unremarkable. No acute osseous abnormality identified. Impression: 1. No pulmonary embolus or other acute abnormality identified. Dictated by: Dictated on workstation # [id number]
[2016-07-25 20:00] VITALS: BP 146/80
[2016-07-25] MEDS ORDERED: oxyCODONE/APAP 5/325MG (PERCOCET 5) TABLET PO PRN (20:15)
[2016-07-25] MEDS ORDERED: CATHETER FLUSH 10 ML SYR IV PRN (20:15)
[2016-07-25] MEDS: CATHETER FLUSH 10 ML SYR IV SCH (23:13)
[2016-07-26] VITALS: BP 132/66
[2016-07-26] MEDS ORDERED: PATIENT MAY USE OWN MED,SINGLE MED PO PRN
[2016-07-26] MEDS ORDERED: FEXO1TAB43 PO (00:55)
[2016-07-26] MEDS ORDERED: GLUC1CAP37 PO (01:00)
[2016-07-26] MEDS ORDERED: FURO40TA4 PO (01:00)
[2016-07-26] MEDS ORDERED: CYCL10TA9 PO (01:00)
[2016-07-26] MEDS ORDERED: CITA20TA12 PO (01:00)
[2016-07-26] MEDS ORDERED: ATOR20TA49 PO (01:00)
[2016-07-26] MEDS ORDERED: SPIR25TA3 PO (01:12)
[2016-07-26] MEDS ORDERED: POTA10TA36 PO (01:12)
[2016-07-26] MEDS ORDERED: [UNRECOGNIZED DRUG - CODE] IJ (01:12)
[2016-07-26 04:00] VITALS: BP 112/58
[2016-07-26] MEDS: CATHETER FLUSH 10 ML SYR IV SCH ×2 (05:27→14:00)
[2016-07-26] MEDS ORDERED: oxyCODONE/APAP 5/325MG (PERCOCET 5) TABLET PO PRN (07:42)
[2016-07-26 08:00] VITALS: BP 120/59
--- NOTE | 2016-07-26 11:19 | Short Stay Summary-Hospitalist ---
HPI History of Present Illness: HPI/Chief Complaint is a 50-year-old white female who had right shoulder ulnar release and carpal tunnel repair by Dr. Mehta as an outpatient. She was admitted for persistent hypoxia postoperatively. In further evaluation the patient it appears that she does have a great deal of daytime somnolence and headaches upon awakening for the last year or 2. She denies having any witnessed sleep apnea. The patient this morning is much more awake and has been undergoing incentive spirometry. The last 30-60 minutes her oxygen saturations of been running in the low 90s off O2. She denies having any shortness of breath. Source: patient Exam Limitations: no limitations Date Seen 07/26/16 Attending Physician Cortney Villarreal MD PCP Omari Calderón MD Referring Physician Dr. Mehta Date of Admission Jul 25, 2016 at 18:59 Home Medications & Allergies Home Medications Reviewed patient Home Medication Reconciliation Form Allergies Coded Allergies: tetracycline (Verified Allergy, Unknown, HIVES, 07/25/16) Past Rxqfpnd-Zmvbef-Gooboo Hx Patient Social History Marrital Status: single Employed/Student: employed Alcohol Use: Denies Use Recreational Drug Use: No Smoking Status: Never a Smoker Physical Abuse Screen: No Sexual Abuse: No Recent Foreign Travel: No Contact w/other who traveled: No Recent Hopitalizations: No Recent Infectious Disease Expo: No Immunizations Up To Date Date of Pneumonia Vaccine: Mar 23, 2013 Date of Influenza Vaccine: Jan 10, 2016 Seasonal Allergies Seasonal Allergies: No Surgeries HX Surgeries: Yes (ORTHOPEDIC TODAY) Surgeries: Gallbladder Respiratory Hx Respiratory Disorders: No Cardiovascular Hx Cardiovascular Disorders: Yes (HEART CATH) Neurological Hx Neurological Disorders: No Genitourinary Hx Genitourinary Disorders: No Gastrointestinal Hx Gastrointestinal Disorders: No Musculoskeletal Hx Musculoskeletal Disorders: No Musculoskeletal Disorders: Arthritis Endocrine Hx Endocrine Disorders: No HEENT HX ENT Disorders: Yes (DENTURES) Cancer Hx Cancer: No Psychosocial Behavioral Health Disorders: Anxiety Family Medical History Family Hx: Asthma 19 FATHER Cataracts 19 FATHER Cervical cancer AUNT1 Completed stroke 19 FATHER Dementia 19 FATHER Diabetes mellitus 19 FATHER 19 MOTHER FH: depression 19 MOTHER FH: sleep apnea 19 FATHER Review of Systems Constitutional: weight gain EENTM: throat swelling Respiratory: dyspnea on exertion Cardiovascular: no symptoms reported Gastrointestinal: no symptoms reported Genitourinary: no symptoms reported : No Musculoskeletal: muscle pain Skin: no symptoms reported Psychiatric/Neurological: No Symptoms Reported Physical Exam Physical Exam Vital Signs Vital Sign - Last 12Hours 07/25/16 16:40 Temp 98.1 Pulse 90 Resp 18 B/P 119/66 Pulse Ox 84 O2 Delivery Room Air O2 Flow Rate 3 Capillary Refill : Less Than 3 Seconds General Appearance: No Apparent Distress Obese Eyes: Bilateral Eye Normal Inspection HEENT: Tonsillar Enlargement Other (very small hypopharynx) Neck: Other (increased diameter) Respiratory: Lungs Clear Normal Breath Sounds No Accessory Muscle Use No Respiratory Distress Cardiovascular: Regular Rate, Rhythm No Gallop No Murmur Gastrointestinal: Normal Bowel Sounds Non Tender Soft Back: Normal Inspection Extremity: Non Tender No Calf Tenderness Other (right arm wrapped and in a splint) Neurologic/Psychiatric: Alert Oriented x3 No Motor/Sensory Deficits Normal Mood/Affect laminating machine operator II-XII Norm as Tested Skin: Normal Color Warm/Dry Lymphatic: No Adenopathy Results Results/Procedures Lab Laboratory Tests 07/25/16 17:[address] chest pulmonary angiogram negative Short Stay Diagnosis Discharge Diagnosis-Short Stay Admission Diagnosis postop hypoxia Obstructive sleep apnea Morbid obesity with a BMI of 49 hypertension Final Discharge Diagnosis Post op persistent hypoxia secondary to undiagnosed obstructive sleep apnea Hypertension Morbid obesity Conclusion Plan plan is to discharge the patient as her oxygenation has remained above 90s she will need further evaluation and treatment for obstructive sleep apnea. Patient has been counseled about weight loss. She is to follow-up with Dr. Orozco this week for further dialogue concerning this. She is to follow-up with Dr. Mehta as he instructs Copy Copies To 1: OMARI CALDERÓN MD Copies To 2: NGUYEN MEHTA MD Clinical Quality Measures DVT/VTE Risk/Contraindication: Risk Factor Score Per Nursin RFS Level Per Nursing on Admit: 3=High CORTNEY VILLARREAL MD Jul 26, 2016 11:19
[2016-07-26] MEDS ORDERED: ENOXAPARIN 40 MG/0.4 ML (LOVENOX) SYR SC SCH (11:45)
[2016-07-26 12:00] VITALS: BP 108/85
== END 2016-07-26 11:25 | disposition home or self-care (01) ==
LOC: EDUNIT# 16:46 → ER 16:47 → 4TH 18:59 → UNDOADMOB 18:59 → 4TH 19:45 → UNDODISOB 07-26 14:35
PROVIDERS: ADMIT Internal Medicine; ATTEND Internal Medicine
DX: R09.02 Hypoxemia (principal); G47.33 Obstructive sleep apnea (adult) (pediatric); I10 Essential (primary) hypertension; E66.01 Morbid (severe) obesity due to excess calories; Z68.42 Body mass index [BMI] 45.0-49.9, adult
CPT/HCPCS: 36415; 71010; 71275; 80053; 83880; 85007; 85027; 94150; 94640; 94664; 94760; G0378

== ENCOUNTER 2016-10-03 09:05 | Outpatient (CLI) | payer BC ==
[~2016-10-03] VITALS: Ht 162.6 cm; Wt 136.5 kg
[~2016-10-03 09:05] MED LIST changes: +ATOR20TA49 PO; +CITA20TA12 PO; +CYCL10TA9 PO; +FEXO1TAB43 PO; +FURO40TA4 PO; +GLUC1CAP37 PO; +POTA10TA36 PO; +SPIR25TA3 PO; +[UNRECOGNIZED DRUG - CODE] IJ
[2016-10-03 09:15] VITALS: BP 119/73
[2016-10-03 10:22] LABS: ANION GAP 11 MMOL/L (5-14); BLOOD UREA NITROGEN 13 MG/DL (7-18); BUN/CREATININE RATIO 17; CALCIUM 8.8 MG/DL (8.5-10.1); CARBON DIOXIDE 25 MMOL/L (21-32); CHLORIDE 105 MMOL/L (98-107); CREATININE SERUM 0.78 MG/DL (0.60-1.30); GFR ESTIMATED > 60; GLUCOSE 124 MG/DL (70-105); POTASSIUM 3.6 MMOL/L (3.6-5.0); SODIUM 141 MMOL/L (135-145)
== END 2016-10-03 09:45 | disposition home or self-care (01) ==
LOC: PREOP 09:05
PROVIDERS: ATTEND Orthopaedic Surgery
DX: Z01.812 Encounter for preprocedural laboratory examination (principal); Z11.2 Encounter for screening for other bacterial diseases; G56.02 Carpal tunnel syndrome, left upper limb; G56.22 Lesion of ulnar nerve, left upper limb
CPT/HCPCS: 36415; 80048; 87081

== ENCOUNTER 2016-10-08 07:29 | Day surgery (SDC) | payer BC ==
--- NOTE | 2016-09-30 13:04 | HISTORY AND PHYSICAL ---
DATE OF SERVICE: REASON FOR ADMISSION: This will be for outpatient surgery on 10/08/2016 for left carpal tunnel release and left cubital tunnel release. HISTORY: The patient is a 50-year-old female with complaints of left hand pain and paresthesias. She reports pain that awakens her at night. She reports pain with repetitive activities. She is right-hand dominant. She reports paresthesias in her index and thumb as well as her small finger and ring finger. Due to functional impairment and failure to improve with conservative measures, the patient would like to proceed with surgical intervention. REVIEW OF SYSTEMS: No chest pain, no shortness of breath. No dysuria. PAST MEDICAL HISTORY: Allergic rhinitis, anxiety disorder, depression, edema, fatigue, sleep apnea, migraines, hyperlipidemia, reflux. PAST SURGICAL HISTORY: Right knee, cholecystectomy and right shoulder and right carpal tunnel and cubital tunnel releases. PRIMARY CARE PROVIDER: Dr. Magaña. FAMILY HISTORY: Hypertension, ischemic heart disease, diabetes. MEDICATIONS: Michelle, atorvastatin, Cipro, citalopram, cyclobenzaprine, furosemide, glucosamine, Kenalog, lisinopril, pantoprazole, potassium, spironolactone. ALLERGIES: TETRACYCLINE. SOCIAL HISTORY: The patient denies alcohol, tobacco use. PHYSICAL EXAM: GENERAL: The patient is well developed, well nourished, in no acute distress. HEENT: Normocephalic, atraumatic. Pupils equal, round and reactive to light. Oropharynx is clear. NECK: Supple. No lymphadenopathy. LUNGS: Clear to auscultation bilaterally. HEART: Regular rate and rhythm. ABDOMEN: Soft, nontender, nondistended. EXTREMITIES: The left upper extremity demonstrates positive elbow flexion test. She has positive Tinel's in both the cubital and carpal tunnels with a positive Phalen's maneuver. IMPRESSION: Left cubital and carpal tunnel syndrome. PLAN: Left cubital and carpal tunnel releases. The risks, benefits, options, ramifications and recovery were discussed at length with the patient. She understands and wishes to proceed. Job ID: [id number] DocumentID: [id number] Dictated Date: 09/30/2016 10:06:02 Resin Painter Date: 09/30/2016 10:28:42 Dictated By: NGUYEN SPRINGER MD
[~2016-10-08] VITALS: Ht 162.6 cm; Wt 136.5 kg
[2016-10-08 07:28] VITALS: BP 122/63
[2016-10-08] MEDS ORDERED: BUPIVACAINE 0.5% 30 ML (SENSORCAINE) VIAL ONE (07:30)
[2016-10-08] MEDS ORDERED: ceFAZolin 1 GM/NS 50 ML IVPB IV ONE ×2 (08:00)
[2016-10-08] MEDS ORDERED: proPOfol 200 MG/20 ML (DIPRIVAN) VIAL IV ONE (08:04)
[2016-10-08] MEDS ORDERED: SEVOFLURANE (ULTANE) 15 ML INHAL SOLN ONE ×4 (08:04→10:02)
[2016-10-08] MEDS ORDERED: LACTATED RINGERS 1,000 ML IV ONE ×2 (08:04→09:41)
[2016-10-08] MEDS ORDERED: ONDANSETRON 4 MG/2 ML (SDV) Z0FRAN ONE ×2 (08:04→09:50)
[2016-10-08] MEDS ORDERED: LIDOCAINE PF 2% 5 ML (XYLOCAINE) VIAL ONE (08:04)
[2016-10-08] MEDS ORDERED: MIDAZOLAM 2 MG/2 ML (VERSED) VIAL ONE (08:04)
[2016-10-08] MEDS ORDERED: fentaNYL INJECTION 100 MCG/2 ML AMP ONE ×2 (08:05→09:34)
[2016-10-08] MEDS: LACTATED RINGERS 1,000 ML IV PRN ×2 (08:10→10:05)
--- NOTE | 2016-10-08 09:13 | Progress Note-Pre Operative ---
Pre-Operative Progress Note H&P Reviewed The H&P was reviewed, patient examined and no changes noted. Date H&P Reviewed: October 08, 2016 Time H&P Reviewed: 09:03 Pre-Operative Diagnosis: left cubital and carpal tunnel syndrome NGUYEN SPRINGER MD October 08, 2016 09:13
--- NOTE | 2016-10-08 09:14 | Progress Note-Post Operative ---
Post-Operative Progess Note Surgeon (s)/Sample Supervisor (s) Surgeon NGUYEN SPRINGER MD Sample Supervisor: Zac Day Pre-Operative Diagnosis left cubital and carpal tunnel syndrome Post-Operative Diagnosis left cubital and carpal tunnel syndrome Procedure & Operative Findings Date of Procedure 10/08/16 Procedure Performed/Findings left carpal and cubital tunnel releases Anesthesia Type GETA Estimated Blood Loss Estimated blood loss (mL): minimal Specimens/Packing Specimens Removed none Packing: none NGUYEN SPRINGER MD October 08, 2016 09:14
[2016-10-08] MEDS ORDERED: oxyCODONE/APAP 5/325MG (PERCOCET 5) TABLET PO PRN (09:15)
[2016-10-08] MEDS ORDERED: morphine INJ 10 MG/ML 1ML (SYR OR VIAL) ONE (09:50)
[2016-10-08] MEDS ORDERED: DEXAMETHASONE PF 10 MG/ML (DECADRON) VIAL ONE (10:02)
[2016-10-08] MEDS ORDERED: fentaNYL INJECTION 100 MCG/2 ML AMP IVP PRN ×2 (10:30→10:45)
[2016-10-08] MEDS: morphine INJ 10 MG/ML 1ML (SYR OR VIAL) IVP PRN ×2 (10:31→10:39)
[2016-10-08] MEDS ORDERED: ONDANSETRON 4 MG/2 ML (SDV) Z0FRAN IVP PRN (10:45)
--- NOTE | 2016-10-08 10:48 | OPERATIVE REPORT ---
DATE OF SERVICE: 10/08/2016 PREOPERATIVE DIAGNOSES: 1. Left cubital tunnel syndrome. 2. Left carpal tunnel syndrome. POSTOPERATIVE DIAGNOSES: 1. Left cubital tunnel syndrome. 2. Left carpal tunnel syndrome. PROCEDURES: 1. Left cubital tunnel release. 2. Left carpal tunnel release. SURGEON: Sandoval Springer MD HEAD OF ICT: ARACELI Hoffman, who assisted throughout the procedure and closed the incisions. ANESTHESIA: General endotracheal by Bethany Chaves CRNA. TOURNIQUET TIME: 15 minutes at 250 mmHg. ESTIMATED BLOOD LOSS: Minimal. DRAINS: None. COMPLICATIONS: None. POSTOPERATIVE PLAN: Routine protocol. The patient was transported to the recovery room awake and in stable condition. STATEMENT OF MEDICAL NECESSITY: The patient is a 50-year-old right-hand dominant female with complaints of left hand pain and paresthesias. She reported pain with activities as well as numbness. She had a positive Tinel's with cubital and carpal tunnels. She had a positive elbow flexion test and positive Phalen's maneuver and due to functional impairment, the patient elected to proceed with surgical intervention. DESCRIPTION OF PROCEDURE: After risks and benefits of the procedure were discussed and questions were answered, an informed consent was signed and placed in the chart. The operative site was confirmed in the preoperative holding area and initialed by the surgeon. The patient was then transported to the operating room after adequate levels of general endotracheal anesthetic were obtained. A timeout was called, confirming the operative site. The left upper extremity was then prepped and draped in the usual sterile fashion with the arm elevated. Tourniquet was inflated to 250 mmHg. A standard L-shaped incision was made posterior to the medial epicondyle. The underlying soft tissues were carefully dissected. The ulnar nerve was identified proximal to the medial epicondyle and dissected to 0.9 cm proximally and this was then dissected through the cubital tunnel. The nerve had fusiform swelling but was intact. This was carefully protected throughout the procedure and intact at the conclusion of the procedure. The ulnar nerve was then dissected into the flexor/pronator mass. The wound was then packed and attention was then turned to carpal tunnel. An incision was made in line with radial border of the ring finger over the palmar aspect of the transverse carpal ligament. The underlying soft tissues were sharply dissected. The transverse carpal ligament was identified and sharply incised by pushing through with a scalpel blade while carefully protecting the median nerve. This was confirmed fully freed with a Randall distally. Proximally, the transverse carpal ligament was spread above and below with dissection scissors and then while carefully protecting the median nerve was released with slightly open scissor edges. This was confirmed fully free with a Randall. The tourniquet was deflated for a total time of 15 minutes. Pressure was used for hemostasis. The wounds were copiously irrigated. A 2-0 Vicryl was used to reapproximate the subcutaneous tissue at the elbow wound and both skin incisions were closed with 4-0 nylon in a running, alternating horizontal mattress fashion. The incisions were infiltrated with plain Marcaine. A soft dressing and splint were applied. The patient was transported to the recovery room awake and in stable condition. Job ID: [id number] DocumentID: [id number] Dictated Date: 10/08/2016 10:00:06 It Architecture Consultant Date: 10/08/2016 10:47:42 Dictated By: SANDOVAL SPRINGER MD
[2016-10-08] MEDS ORDERED: diphenhydrAMINE 50 MG/ML INJ (BENADRYL) ONE (10:56)
[2016-10-08] MEDS ORDERED: FAMOTIDINE 20MG/2ML IV (PEPCID) ONE (10:56)
[2016-10-08] MEDS ORDERED: FAMOTIDINE 20MG/2ML IV (PEPCID) IVP ONE (11:15)
[2016-10-08] MEDS ORDERED: diphenhydrAMINE 50 MG/ML INJ (BENADRYL) IVP ONE (11:15)
[2016-10-08 11:30] VITALS: BP 155/87
[2016-10-08] MEDS ORDERED: OXYC-471 PO (12:14)
[2016-10-08 12:20] VITALS: BP 174/88
[2016-10-08 12:55] VITALS: BP 148/89
[2016-10-08 13:05] VITALS: BP 148/89
== END 2016-10-08 13:05 | disposition home or self-care (01) ==
LOC: SDC 07:29
PROVIDERS: ATTEND Orthopaedic Surgery
DX: G56.02 Carpal tunnel syndrome, left upper limb (principal); G56.22 Lesion of ulnar nerve, left upper limb; J30.9 Allergic rhinitis, unspecified; F41.9 Anxiety disorder, unspecified; F32.9 Major depressive disorder, single episode, unspecified; G47.33 Obstructive sleep apnea (adult) (pediatric); E78.5 Hyperlipidemia, unspecified; G40.909 Epilepsy, unspecified, not intractable, without status epilepticus; K21.9 Gastro-esophageal reflux disease without esophagitis; Z79.899 Other long term (current) drug therapy; E66.01 Morbid (severe) obesity due to excess calories; Z68.43 Body mass index [BMI] 50.0-59.9, adult
CPT/HCPCS: 84703

== ENCOUNTER → 2017-05-19 | Outpatient (CLI) | payer BC ==
[~2017-05-19] MED LIST changes: +OXYC-471 PO
--- NOTE | 2017-05-19 16:58 | Diagnostic Imaging Report ---
INDICATION: Neck pain with left arm tingling and pain. FINDINGS: Cervical spine series obtained with AP, odontoid, and lateral views. There is disc space narrowing at C6-7 with osteophyte formation. There is milder osteophyte formation at C5-6. There is no subluxation or malalignment. There is no acute fracture. IMPRESSION: Degenerative changes at C6-7 and to a lesser extent at C5-6 as above. No fracture or subluxation. Dictated by: Dictated on workstation # [id number]
== END ==
LOC: RAD 15:59
PROVIDERS: ATTEND Nurse Practitioner Family
DX: M47.812 Spondylosis without myelopathy or radiculopathy, cervical region (principal)
CPT/HCPCS: 72040

== ENCOUNTER → 2017-05-22 | Outpatient (CLI) | payer BC ==
--- NOTE | 2017-05-22 09:05 | Diagnostic Imaging Report ---
PROCEDURE: MR imaging cervical spine without contrast. TECHNIQUE: Multiplanar, multisequence MR imaging of the cervical spine was performed without contrast. INDICATION: Left arm pain. There are no previous MRI examinations available for comparison. FINDINGS: The plain film cervical spine exam of 05/19/2017 noted degenerative disc disease at C6-C7 and to lesser degree at C5-C6. On the T2 sagittal images of this exam, there is narrowing and desiccation of the disc at both C5-C6 and C6-C7. At the C5-C6 level, there is a prominent disc protrusion to the left. The disc compresses the left ventral aspect of the thecal sac and narrows the AP diameter 5.4 mm. There is also narrowing of the neural foramen on the left and there may be encroachment of the exiting left nerve root at this level as well. At the C6-C7 level, there is also a disc protrusion to the left. This is not as striking as the disc protrusion at C5-C6 and the AP diameter of the thecal sac is only narrowed to 6.8 mm. There is moderate narrowing of the neural foramen on the left at this level as well. At the C4-C5 level, there is a disc bulge eccentric to the right. There is no evidence for central stenosis at this level but there is narrowing of the neural foramen on the right due to degenerative disc and bony disease. The remainder of the cervical spine is unremarkable for spinal stenosis or nerve root encroachment. There is no abnormal signal arising from the cord or the vertebral bodies to indicate an acute abnormality. There is no sign of a paraspinal mass. IMPRESSION: 1. There are disc protrusions to the left at C5-C6 and C6-C7. These do result in spinal stenosis and there may be encroachment of the exiting left nerve root at the C5-C6 level as well. 2. The remainder of the cervical spine is unremarkable for spinal stenosis but there is narrowing of the neural foramen on the right at C4-C5. 3. There is no acute bony abnormality identified and there is no sign of a cord lesion. Dictated by: Dictated on workstation # [id number]
== END ==
LOC: RAD 07:48
PROVIDERS: ATTEND Nurse Practitioner Family
DX: M48.02 Spinal stenosis, cervical region (principal); M50.222 Other cervical disc displacement at C5-C6 level
CPT/HCPCS: 72141

== ENCOUNTER → 2017-11-19 | Outpatient (CLI) | payer BC ==
[~2017-11-19] MED LIST changes: -SPIR25TA3 PO; +SPIR25TA5 PO
--- NOTE | 2017-11-19 16:10 | Diagnostic Imaging Report ---
Indication: Left lower foot pain x2 months 2 views of the left foot There is no fracture, dislocation or other acute abnormality seen. Impression: Negative left foot Dictated by: Dictated on workstation # [id number]
== END ==
LOC: RAD 10:45
DX: M79.672 Pain in left foot (principal)
CPT/HCPCS: 73620

== ENCOUNTER → 2018-03-05 | Outpatient (CLI) | payer BC ==
--- NOTE | 2018-03-05 14:30 | Diagnostic Imaging Report ---
INDICATION: Palpable lump in the inner left breast. COMPARISON: 06/27/2016. TECHNIQUE: 2D and 3D bilateral diagnostic mammography was performed with CAD. A BB marker was placed at the area of palpable abnormality along the medial aspect of the left breast. FINDINGS: Both breasts are heterogeneously dense, limiting the sensitivity of mammography. No discrete mass or malignant appearing microcalcifications are seen. The axillae are unremarkable. IMPRESSION: No suspicious mammographic abnormality is seen. Even so, directed sonographic interrogation over the area of palpable abnormality in the medial left breast is recommended and will be performed today. ACR BI-RADS Category 0: Incomplete. (Needs additional imaging evaluation). Result letter will be mailed to the patient. Note: At least 10% of breast cancer is not imaged by mammography. Dictated by: Dictated on workstation # [id number]
--- NOTE | 2018-03-05 14:53 | Diagnostic Imaging Report ---
INDICATION: Palpable lump in the left breast. COMPARISON: Correlation is made with the diagnostic mammogram from earlier this same day. TECHNIQUE: Sonographic interrogation over the area of palpable abnormality in the left breast was performed. This corresponds to the 9:30 location, 7 cm from the nipple. FINDINGS: Just below the skin surface, there is an ovoid hyperechoic mass measuring 1.8 x 0.6 x 1.4 cm. This is homogeneous in appearance. No internal vascularity is seen. The features are consistent with a lipoma. No other abnormalities are seen. IMPRESSION: Lipoma at the 9:30 location of the left breast, 7 cm from the nipple, corresponding with the palpable abnormality. The patient may return to routine annual screening mammography. ACR BI-RADS Category 2: Benign findings. Result letter will be mailed to the patient. Note: At least 10% of breast cancer is not imaged by mammography. Dictated by: Dictated on workstation # [id number]
== END ==
LOC: RAD 08:13
DX: D17.39 Benign lipomatous neoplasm of skin and subcutaneous tissue of other sites (principal); N63.20 Unspecified lump in the left breast, unspecified quadrant
CPT/HCPCS: 76642; 77066

== ENCOUNTER 2019-01-29 17:28 | Emergency (ER) | payer BC | END 2019-01-29 19:48 | disposition home or self-care (01) | LOC: ER 17:28 ==

== ENCOUNTER → 2019-09-16 | Outpatient (CLI) | payer BC ==
--- NOTE | 2019-09-16 15:34 | Diagnostic Imaging Report ---
PROCEDURE: CT abdomen without contrast. TECHNIQUE: Multiple contiguous axial images were obtained through the abdomen without the use of intravenous contrast. Auto Exposure Controls were utilized during the CT exam to meet ALARA standards for radiation dose reduction. INDICATION: Abdominal mass. FINDINGS: The heart size is normal. The lung bases are clear. The liver is normal in size and without focal lesions. Gallbladder is surgically absent. There is no biliary ductal dilatation. Spleen is normal. Pancreas and adrenal glands are unremarkable. Kidneys are normal in appearance. Bowel gas pattern is nonspecific. There is no free air. There is no ascites. There is no focal inflammatory changes. There is no discrete mass. There are degenerative changes in the spine. IMPRESSION: Unremarkable noncontrast CT abdomen. Specifically, there is no evidence of an abdominal mass. Dictated by: Dictated on workstation # [id number]
== END ==
LOC: RAD 11:58
DX: R19.06 Epigastric swelling, mass or lump (principal)
CPT/HCPCS: 74150

== ENCOUNTER → 2020-10-29 | Outpatient (CLI) | payer BC ==
[~2020-10-29] MED LIST changes: -OXYC-471 PO; +OXYC1TAB11 PO
--- NOTE | 2020-10-29 12:39 | Diagnostic Imaging Report ---
PROCEDURE: US Renal Bilateral. TECHNIQUE: Multiple real-time grayscale images were obtained over the kidneys in various projections bilaterally. INDICATION: Microscopic hematuria. FINDINGS: Right and left kidneys measure 11 x 6.0 x 4.9 cm and 11 x 5.3 x 5.2 cm, respectively. There is no evidence of renal mass or hydronephrosis. No shadowing calculus is seen. Both ureteric jets are confirmed in the urinary bladder without evidence of bladder lesion seen on limited views. IMPRESSION: Unremarkable bilateral renal ultrasound. Dictated by: Dictated on workstation # [id number]
== END ==
LOC: RAD 12:00
DX: R31.29 Other microscopic hematuria (principal)
CPT/HCPCS: 76770

== ENCOUNTER → 2020-10-31 | Outpatient (CLI) | payer BC ==
--- NOTE | 2020-10-31 15:22 | Diagnostic Imaging Report ---
INDICATION: Mid back pain. TIME OF EXAM: 12:31 PM There is slight right convexity thoracic scoliotic curvature. There is normal kyphotic curvature. Vertebral body heights are maintained. Pedicles and paraspinous line are intact. No fractures are seen. IMPRESSION: No acute bony abnormality is detected. Dictated by: Dictated on workstation # [id number]
== END ==
LOC: RAD 11:45
DX: M54.6 Pain in thoracic spine (principal)
CPT/HCPCS: 72070

== ENCOUNTER → 2020-11-06 | Outpatient (CLI) | payer BC ==
[~2020-11-06] MED LIST changes: +CATHETER FLUSH 10 ML SYR IV PRN; +FLUO40CA PO; +HOLD METFORMIN - RECEIVED CONTRAST 20 ML VIAL IV SCH; +IOHEXOL 350 MG/ML 100 ML (OMNIPAQUE 350) VIAL IV ONE; +METF-399 PO; +NS 100 ML (IVPB) BAG IV ONE; +OXYB10TA29 PO; +ROSU10TA28 PO
[2020-11-06 08:16] LABS: BUN/CREATININE RATIO 17; CREATININE SERUM 0.86 MG/DL (0.60-1.30); GFR ESTIMATED > 60
--- NOTE | 2020-11-06 09:51 | Diagnostic Imaging Report ---
EXAMINATION: CT abdomen and pelvis with and without intravenous contrast. TECHNIQUE: Precontrast acquisitions were acquired through the abdomen and pelvis. Multiple contiguous axial images were obtained through the abdomen and pelvis after the administration of intravenous contrast. All CT scans use one or more of the following dose optimizing techniques: automated exposure control, MA and/or KvP adjustment based on patient size and exam type or iterative reconstruction. HISTORY: Abdominal pain. COMPARISON: 09/16/2019 FINDINGS: Limited views of the lower thorax are unremarkable. Liver is mildly steatotic. There is no biliary ductal dilation. Gallbladder is surgically absent. Pancreas is normal. Spleen is normal. Adrenal glands are normal. The kidneys are normal. There is no hydronephrosis. Urinary bladder is normal. Visualized bowel is normal in caliber without obstruction or inflammation. No free fluid or air. No abdominal or pelvic lymphadenopathy. Aorta is normal in caliber without aneurysm. There are no suspicious osseous lesions. IMPRESSION: 1. No acute abnormality in the abdomen or pelvis. Dictated by: Dictated on workstation # [id number]
== END ==
LOC: RAD 08:45
PROVIDERS: ATTEND Surgery
DX: R10.9 Unspecified abdominal pain (principal)
CPT/HCPCS: 36415; 74178; 82565; 84520

== ENCOUNTER 2020-11-07 12:28 | Outpatient (CLI) | payer BC ==
[~2020-11-07] VITALS: Ht 162.5 cm; Wt 127.7 kg
[~2020-11-07 12:28] MED LIST changes: -CATHETER FLUSH 10 ML SYR IV PRN; -FLUO40CA PO; -HOLD METFORMIN - RECEIVED CONTRAST 20 ML VIAL IV SCH; -IOHEXOL 350 MG/ML 100 ML (OMNIPAQUE 350) VIAL IV ONE; -METF-399 PO; -NS 100 ML (IVPB) BAG IV ONE; -OXYB10TA29 PO; -ROSU10TA28 PO
[2020-11-08] MEDS ORDERED: ROSU10TA28 PO (09:36)
[2020-11-08] MEDS ORDERED: METF-399 PO (09:36)
[2020-11-08] MEDS ORDERED: FLUO40CA PO (09:36)
[2020-11-08] MEDS ORDERED: OXYB10TA29 PO (09:36)
== END 2020-11-08 13:50 | disposition home or self-care (01) ==
LOC: PREOP 12:28
PROVIDERS: ATTEND Surgery
DX: Z01.818 Encounter for other preprocedural examination (principal)

== ENCOUNTER 2020-11-09 11:33 | Day surgery (SDC) | payer BC ==
[~2020-11-09] VITALS: Ht 162.5 cm; Wt 127.7 kg
[2020-11-09] VITALS (15 sets, daily range): BP systolic 115–142; BP diastolic 62–76
[~2020-11-09 11:33] MED LIST changes: +FLUO40CA PO; +METF-399 PO; +OXYB10TA29 PO; +ROSU10TA28 PO
[2020-11-09] MEDS ORDERED: NS IV 500 ML 500 ML ONE (11:40)
[2020-11-09] MEDS ORDERED: MIDAZOLAM 5 MG/5 ML (VERSED) VIAL IV ONE (11:45)
[2020-11-09] MEDS ORDERED: NS IV 500 ML 500 ML IV PRN (11:45)
[2020-11-09] MEDS ORDERED: LIDOCAINE JELLY 2% 6 ML SYRINGE MM PRN (11:45)
[2020-11-09] MEDS ORDERED: fentaNYL INJ 100 MCG/2 ML AMP IVP ONE (11:45)
--- NOTE | 2020-11-09 11:52 | Conscious Sedation/ASA ---
Conscious Sedation Pre-Proced Time 11:45 ASA Score 2 For ASA 3 and 4: Consider anesthesia and medical clearance. Also, for patients with a history of failed moderate sedation consider anesthesia. Airway Lungs Heart ASA score ASA 1: a normal healthy patient ASA 2: a patient with a mild systemic disease (mid diabetes, controlled hypertension, obesity ASA 3: a patient with a severe systemic disease that limits activity (angina, COPD, prior Myocardial infarction) ASA 4: a patient with an incapacitating disease that is a constant threat to life (CHF, renal failure) ASA 5: a moribund patient not expected to survive 24 hrs. (ruptured aneurysm) ASA 6: a declared brain- patient whose organs are being harvested. For emergent operations, add the letter E after the classification Mallampati Classification Grade 2 Sedation Plan Analgesia, Amnesia, Plan communicated to team members, Discussed options with patient/fam, Discussed risks with patient/fam The patient is an appropriate candidate to undergo the planned procedure, sedation, and anesthesia. The patient immediately re-assessed prior to indication. MARCELLA ALBRIGHT MD Nov 09, 2020 11:52
--- NOTE | 2020-11-09 11:52 | Progress Note-Pre Operative ---
Pre-Operative Progress Note H&P Reviewed The H&P was reviewed, patient examined and no changes noted. Date Seen by Provider: Nov 09, 2020 Time Seen by Provider: 11:45 Date H&P Reviewed: Nov 09, 2020 Time H&P Reviewed: 11:45 Pre-Operative Diagnosis: rectal bleed MARCELLA ALBRIGHT MD Nov 09, 2020 11:52
--- NOTE | 2020-11-09 11:54 | Discharge Inst-Surgical ---
D/C Lap Instructions-NATALEE Follow Up Activity as tolerated High Fiber Diet 25g or more per day Avoid Alcohol, Caffeine, Spicy [place] and Acid foods. Drink 64 fluid oz or more of fluids per day. Symptoms to Report: Fever over 101 degree F, Nausea/Vomiting If any problems/questions: Contact your physician or go to Emergency Room MARCELLA ALBRIGHT MD Nov 09, 2020 11:54
[2020-11-09] MEDS ORDERED: HYDROcodone/APAP 5 MG/325 MG (LORTAB) TAB PO PRN (12:00)
[2020-11-09] MEDS ORDERED: ACETAMINOPHEN 325 MG TABLET PO PRN (12:00)
[2020-11-09] MEDS ORDERED: ONDANSETRON 4 MG/2 ML (SDV) Z0FRAN IVP PRN (12:00)
[2020-11-09] MEDS ORDERED: morphine INJ 10 MG/ML 1ML (SYR OR VIAL) IVP PRN ×2 (12:00)
[2020-11-09] MEDS ORDERED: MIDAZOLAM 5 MG/5 ML (VERSED) VIAL ONE ×2 (13:06→13:31)
[2020-11-09] MEDS ORDERED: fentaNYL INJ 100 MCG/2 ML AMP ONE (13:07)
[2020-11-09] MEDS ORDERED: LIDOCAINE JELLY 2% 6 ML SYRINGE ONE (13:08)
--- NOTE | 2020-11-09 16:36 | OPERATIVE REPORT ---
DATE OF SERVICE: 11/09/2020 ATTENDING PRIMARY CARE PHYSICIAN: Omari Magaña MD PREOPERATIVE DIAGNOSIS: Rectal bleeding. POSTOPERATIVE DIAGNOSES: Chronic stage II external and internal hemorrhoids. Remainder of the rectum and colon were normal. PROCEDURE: Colonoscopy. SURGEON: Marcella Albright MD. ANESTHESIA: Conscious sedation. ESTIMATED BLOOD LOSS: Minimal. FINDINGS: Chronic stage II external and internal hemorrhoids. Remainder of the rectum and colon were normal. DISPOSITION: The patient tolerated the procedure well. INDICATIONS: The patient is a 55-year-old female who states that she has had intermittent episodes of rectal bleeding for years. She did have a colonoscopy in 2013 and states no significant lesions were identified. She states that what is out is that she notices the rectal bleeding during her menstrual cycles. She otherwise does not report any other symptoms. No abdominal pain and is tolerating a regular diet. DESCRIPTION OF PROCEDURE: The patient was brought to the endoscopy suite, laid in the left lateral decubitus position with head slightly elevated. After adequate IV pain and sedative medications and conscious sedation anesthesia, digital rectal examination was performed. There was chronic stage II external and internal hemorrhoids, not actively edematous nor inflamed and no bleeding. Normal sphincter tone was felt and there were no palpable masses. The endoscope was then intubated into the anus and rectum gently insufflated. The endoscope was then advanced to the valves of Scott of the rectum with no polyps or any neoplasms identified. Through the sigmoid colon, there was no diverticulosis identified. The endoscope was then advanced to the remainder of the descending, transverse and ascending colon to the cecum. These segments were normal. There were no polyps or any neoplasms identified as well as no mucosal inflammatory changes to indicate any inflammatory bowel disease. The endoscope was then slowly withdrawn while taking a second look and suctioning of residual air with no additional findings. The patient tolerated the procedure well. We feel that the most likely etiology of her symptomatology is due to constipation, which she does report and this does cause intermittent episodes of hemorrhoidal flareups of the internal hemorrhoidal cushion. We will recommend the incorporation of a high fiber diet with at least 25 grams of fiber daily from fiber supplemental source as well as significant amounts of water to promote soft stools on a daily basis. If her stools are soft that do not require any straining, this should resolve on its own. If she is asymptomatic, she does not need another colonoscopy for another 10 years. Job ID: [id number] DocumentID: [id number] Dictated Date: 11/09/2020 13:41:05 Health Sciences Department Chair Date: 11/09/2020 16:36:39 Dictated By: MARCELLA ALBRIGHT MD
== END 2020-11-09 14:25 | disposition home or self-care (01) ==
LOC: ENDO 11:33
PROVIDERS: ATTEND Surgery
DX: K62.5 Hemorrhage of anus and rectum (principal); K64.1 Second degree hemorrhoids; K59.00 Constipation, unspecified; K21.9 Gastro-esophageal reflux disease without esophagitis; F32.9 Major depressive disorder, single episode, unspecified; E78.00 Pure hypercholesterolemia, unspecified; Z90.49 Acquired absence of other specified parts of digestive tract
CPT/HCPCS: 84703

== ENCOUNTER 2021-05-07 10:20 | Outpatient (CLI) | payer BC ==
[~2021-05-07] VITALS: Ht 162.6 cm; Wt 127.0 kg
[~2021-05-07 10:20] MED LIST changes: +CYCL10TA25 PO; -CYCL10TA9 PO; -POTA10TA36 PO; +POTA10TA37 PO
[2021-05-07 10:28] VITALS: BP 127/84
[2021-05-07] MEDS ORDERED: diphenhydrAMINE 50 MG/ML INJ (BENADRYL) IV PRN (11:00)
[2021-05-07] MEDS ORDERED: EPINEPHrine INJECTION 1 MG/ML AMP IM PRN (11:00)
[2021-05-07] MEDS ORDERED: ACETAMINOPHEN 500 MG TAB (TYLENOL) PO PRN (11:00)
[2021-05-07] MEDS ORDERED: BAMLANIVIMAB 700 MG/ETESEVIMAB 1,400 MG IN NS IV ONE ×3 (11:00)
[2021-05-07] MEDS ORDERED: ONDANSETRON 4 MG/2 ML (SDV) Z0FRAN IV PRN (11:00)
[2021-05-07 13:01] VITALS: BP 140/77
== END 2021-05-07 13:53 | disposition home or self-care (01) ==
LOC: INFUSION 10:20
PROVIDERS: ATTEND Pediatrics
DX: U07.1 COVID-19 (principal)

== ENCOUNTER → 2022-01-29 | Outpatient (CLI) | payer BC ==
[~2022-01-29] MED LIST changes: +POTA-177 PO; -POTA10TA37 PO
--- NOTE | 2022-01-29 16:55 | Diagnostic Imaging Report ---
PROCEDURE: CT sinuses without contrast TECHNIQUE: Multiple contiguous axial images were obtained through the sinuses without the use of intravenous contrast. Coronal and sagittal reformations were then performed. Auto Exposure Controls were utilized during the CT exam to meet ALARA standards for radiation dose reduction. INDICATION: Chronic sinusitis There is mild rightward deviation of the nasal septum. Note is made of left delicia bullosa with moderate mucous retention cyst or polyp in the left maxillary sinus. Otherwise, the paranasal sinuses are clear without evidence of air-fluid level. Mastoid air cells and middle ear cavities are also clear. There is no evidence of temporomandibular joint abnormality. There is no evidence of bone destruction or focal fluid collection. IMPRESSION: Rightward deviation of the nasal septum with probable mucous retention cyst or polyp in the left maxillary sinus. No other evidence of paranasal sinus disease is identified. Dictated by: Dictated on workstation # [id number]
== END ==
LOC: RAD 16:23
PROVIDERS: ATTEND Otolaryngology Otolaryngology/Facial Plastic Surgery
DX: J32.9 Chronic sinusitis, unspecified (principal); J34.2 Deviated nasal septum
CPT/HCPCS: 70486